=== PATIENT | male | born 1960 | race Caucasian/White ===

== ENCOUNTER 2022-04-29 03:15 | Emergency (ER) | payer BC ==
[2022-04-29] MEDS ORDERED: Ketorolac 60 MG/2 ML SDV IM ONE (03:58)
== END 2022-04-29 04:35 | disposition home or self-care (01) ==
LOC: KA.ED 03:15
DX: S93.401A Sprain of unspecified ligament of right ankle, initial encounter (principal); X50.1XXA Overexertion from prolonged static or awkward postures, initial encounter
CPT/HCPCS: 73610-RT; 96372; 99283; J1885

== ENCOUNTER 2024-04-17 17:26 | Emergency (ER) | payer BC | END 2024-04-17 18:45 | disposition home or self-care (01) | LOC: KA.ED 17:26 | DX: M25.531 Pain in right wrist (principal); I10 Essential (primary) hypertension; Z90.49 Acquired absence of other specified parts of digestive tract; Z79.899 Other long term (current) drug therapy; X50.0XXA Overexertion from strenuous movement or load, initial encounter; Y93.B3 Activity, free weights | CPT/HCPCS: 73110-RT; 99283 ==